=== PATIENT | female | born 1970 | race Caucasian/White ===

== ENCOUNTER 2020-07-24 13:03 | Day surgery (SDC) | payer OTHER ==
[2020-07-23 16:29] LABS: BASOPHILS % (AUTO) 0.4 % (0-1); EOSINOPHILS % (AUTO) 0.5 % (0-6); LYMPHOCYTES # (AUTO) 1.7 X10'3 (1.1-4.8); MEAN CORPUSCULAR HGB CONC 33.5 g/dL (33.0-36.5); MEAN CORPUSCULAR VOLUME 92.4 FL (78-98); MEAN PLATELET VOLUME 10.3 FL (7.4-10.4); MONOCYTES # (AUTO) 0.5 X10'3 (0-0.9); MONOCYTES % (AUTO) 5.6 % (2-12); NEUTROPHILS # (AUTO) 6.4 X10'3 (1.8-7.7); NEUTROPHILS % (AUTO) 73.5 % (42-75); PRE OP HEMATOCRIT 40.6 % (35.0-45.0); PRE OP HEMOGLOBIN 13.6 g/dL (12.0-16.0); PRE OP PLATELET COUNT 224 X10'3 (140-440); RED BLOOD COUNT 4.39 X10'6 (4.20-5.60); RED CELL DISTRIBUTION WIDTH 13.4 % (11.5-14.5)
[2020-07-23 16:44] LABS: ALBUMIN 3.7 G/DL (3.4-5.0); ALKALINE PHOSPHATASE 71 IU/L (46-116); BLOOD UREA NITROGEN 16 MG/DL (7-18); BUN/CREATININE RATIO 18.4 (6.6-38.0); CALCIUM 8.8 MG/DL (8.5-10.1); CHLORIDE 105 MMOL/L (99-107); CREATININE 0.87 MG/DL (0.40-0.90); PRE OP ALT 17 U/L (30-65); PRE OP ANION GAP 8 (8-16); PRE OP AST 12 U/L (10-37); PRE OP BILIRUB, TOTAL 0.4 MG/DL (0.0-1.0); PRE OP GLUCOSE 104 MG/DL (70-104); PRE OP POTASSIUM 4.1 MMOL/L (3.4-5.1); PRE OP SODIUM 140 MMOL/L (135-145); TOTAL CARBON DIOXIDE 26.9 MMOL/L (24-32); TOTAL PROTEIN 7.5 G/DL (6.4-8.2); eGFR 69 ML/MIN
[2020-07-23 16:46] LABS: CLARITY,URINE SLIGHTLY CLOUDY (Clear); COLOR,URINE YELLOW (Yellow); GLUCOSE, URINE NEGATIVE (Neg); KETONES,URINE NEGATIVE (Neg); LEUKOCYTE ESTERASE ,URINE NEGATIVE (Neg); NITRITES, URINE NEGATIVE (Neg); OCCULT BLOOD,URINE SMALL (Neg); PROTEIN,URINE NEGATIVE (Neg); UROBILINOGEN,URINE 0.2 E.U/dL (0.2-1.0)
[2020-07-23 16:50] LABS: UA COLLECTION TYPE CLN CATCH MIDSTREAM
[2020-07-23 16:57] LABS: MUCUS STRANDS MODERATE /LPF (Neg); SQUAMOUS EPITHELIAL CELL,UR MODERATE /LPF (FEW)
[2020-07-23 16:59] LABS: BACTERIA,URINE FEW /HPF (Neg)
[2020-07-23 17:00] LABS: WBC,URINE 0-4 /HPF (0-4)
[2020-07-24] VITALS (16 sets, daily range): BP systolic 112–179; BP diastolic 62–99
[~2020-07-24] VITALS: Ht 167.6 cm; Wt 153.4 kg
[~2020-07-24 13:03] MED LIST: HYDR-3973 PO; ceFAZolin inj. 3,000 MG in normal saline 100ml IV soln 100 ML IV ONE; famotidine 20mg tablet PO ONE
[2020-07-24] MEDS: ringers solution, lacted 1,000 ML IV SCH ×2 (14:16→20:51)
[2020-07-24] MEDS ORDERED: BUPIVAcaine/PF 2.5 mg/ml (0.25%) 30ml vial ONE (15:34)
[2020-07-24] MEDS ORDERED: acetaminophen 1,000mg/100ml IV 100 ML IV ONE (15:46)
[2020-07-24] MEDS ORDERED: morphine 2 MG/ML inj. syringe IV PRN ×2 (15:50→15:55)
[2020-07-24] MEDS ORDERED: proCHLORperazine 10 MG/2 ml inj IV PRN ×2 (15:50→15:55)
[2020-07-24] MEDS ORDERED: ondansetron/PF 4mg/2ml inj IV PRN ×3 (15:50→19:00)
[2020-07-24] MEDS ORDERED: morphine 4 MG/ML inj SYRINge IV PRN ×2 (15:50→15:55)
[2020-07-24] MEDS ORDERED: ringers solution, lacted 1,000 ML IV SCH ×2 (15:50→15:55)
[2020-07-24] MEDS ORDERED: meperidine/PF 25mg/ml syringe IV PRN ×5 (15:50→15:55)
[2020-07-24] MEDS ORDERED: midazolam 2 mg/2 ml injection ONE (15:53)
[2020-07-24] MEDS ORDERED: fentaNYL /PF 50mcg/ml 5ml ampule ONE (15:53)
[2020-07-24] MEDS ORDERED: LIDOcaine 2% (20mg/ml) 5ml vial ONE (15:54)
[2020-07-24] MEDS ORDERED: propofol inj 20 ML IV ONE (15:54)
[2020-07-24] MEDS ORDERED: sevoflurane 250ml liquid IH ONE (16:21)
[2020-07-24] MEDS ORDERED: rocuronium 10mg/ml inj IV ONE ×2 (16:21→16:49)
[2020-07-24] MEDS ORDERED: ondansetron/PF 4mg/2ml inj ONE (18:33)
[2020-07-24] MEDS ORDERED: dexamethasone sod phosphate 4mg/ml inj. ONE (18:33)
[2020-07-24] MEDS ORDERED: glycopyrrolate 0.2mg/ml inj ONE (18:42)
[2020-07-24] MEDS ORDERED: neostigmine methylsulfate 1 MG/ML 10ml vial ONE (18:42)
[2020-07-24] MEDS ORDERED: naloxone 0.4 mg/ml inj IV PRN (19:00)
[2020-07-24] MEDS ORDERED: Potassium Cl inj 20 MEQ in ringers solution, lacted 1,000 ML IV SCH (19:00)
[2020-07-24] MEDS ORDERED: CADD PCA waste documentation MC PRN (19:00)
[2020-07-24] MEDS ORDERED: HYDROcodone/acetaminophen 10/325mg tab PO PRN (19:00)
--- NOTE | 2020-07-24 19:05 | NUR ---
Received from OR via SURGICAL BED , accompanied by Anesthesiologist WILMAN and report given by Anesthesiolgist. PT AWAKE, VS-STABLE, 20G PIV TO RIGHT HAND 100CC LR RUNNING, BANDAIDS TO ABD SITES X5-CDI, F/C-DRAINING CLEAR YELLOW URINE, PT PAINFUL-WILL MEDICATE, SCDS IN PLACE.
[2020-07-24] MEDS: meperidine/PF 25mg/ml syringe IV PRN ×2 (19:11→19:26)
--- NOTE | 2020-07-24 19:38 | NUR ---
Patient in room . I have received report from ERA Lilly and had the opportunity to ask questions and assume patient care.
[2020-07-24] MEDS: HYDROmorphone/NS 1 mg/ml CADD 50 ML IV SCH ×3 (20:03→22:56)
--- NOTE | 2020-07-24 20:15 | NUR ---
Report called to receiving nurse. Transferred via SURGICAL BED WITH 1 BAG OF Belongings. CALLED, PT ALERT AND AWARE OF TRANSFER, VS-WNL, ABD DRSG-CDI, LR RUNNING AT 100ML/HR WITH DILAUDID CADD ATTATCHED, PT EDUCATED ABOUT PAIN MGMT AND USE OF CADD BUTTON, PT GIVEN ORDERED BOLUS DOSE 0.2MG PRIOR TO TRANSFER TO FLOOR, CADD SET UP WITH 0.2MGQ 10MIN DOSING, SCDS IN PLACE, RECEIVING RN AT BEDSIDE Special Issues communicated to receiving nurse.
--- NOTE | 2020-07-24 20:15 | NUR ---
Pt arrived to floor accompanied by two RN's, Demetrice emerson RN states she received bolus and pushed once. VSS, Regular bowel sounds, provided pt with some ice chips, states pain 6/10.
[2020-07-25] VITALS: BP 134/77
[2020-07-25] MEDS: HYDROmorphone/NS 1 mg/ml CADD 50 ML IV SCH ×7 (00:23→13:00)
--- NOTE | 2020-07-25 04:10 | NUR ---
lloyd in [place] x2 sba Addendum: 07/25/20 at 0411 by Jeni Cristobal RN Amended: Links added.
[2020-07-25 04:20] VITALS: BP 149/79
--- NOTE | 2020-07-25 04:33 | NUR ---
Patient not tolerating ice chips at this time. Dropped diet to clears and educated patient to take in clears slowly and NPO if still feeling nauseous.
[2020-07-25] MEDS ORDERED: proCHLORperazine 10 MG/2 ml inj IV PRN (05:15)
[2020-07-25] MEDS: ringers solution, lacted 1,000 ML IV SCH ×2 (05:20→12:25)
--- NOTE | 2020-07-25 05:33 | NUR ---
Increased LR to 125 mL/hr per orders.
--- NOTE | 2020-07-25 06:35 | NUR ---
Problems reprioritized. Patient report given, questions answered & plan of care reviewed with ERA Willson.
[2020-07-25 07:00] VITALS: BP 130/71
--- NOTE | 2020-07-25 10:29 | NUR ---
Dickerson catheter DC 1015. patient voided 100mls ambulated 600ft.
[2020-07-25 11:00] VITALS: BP 130/74
[2020-07-25] MEDS ORDERED: OXYC-150 PO (13:46)
--- NOTE | 2020-07-25 15:03 | NUR ---
patient seen by Dr Hubbard is for DC. DR Hubbard office called into [facility] in [place] prescription for percocet. patients five band aide sites CDI. All Dc instructions given to patient . Patient Dc home via private car with spouse . [id number].
== END 2020-07-25 14:35 | disposition home or self-care (01) ==
LOC: PAS 13:03 → UNDOADMIN 19:04 → SUR 3N 19:04 → UNDODISIN 07-25 14:35 → PAS 07-25 14:35
PROVIDERS: ATTEND Surgery
DX: K43.0 Incisional hernia with obstruction, without gangrene (principal); Z20.828 Contact with and (suspected) exposure to other viral communicable diseases; Z79.899 Other long term (current) drug therapy; Z98.890 Other specified postprocedural states; Z90.710 Acquired absence of both cervix and uterus; Z98.84 Bariatric surgery status; E66.01 Morbid (severe) obesity due to excess calories; Z68.43 Body mass index [BMI] 50.0-59.9, adult; Z90.49 Acquired absence of other specified parts of digestive tract; Z88.8 Allergy status to other drugs, medicaments and biological substances
CPT/HCPCS: 36415; 49655; 80053; 81001; 82948; 85025; 87081; 87635; 93005; C1758; C1781; C9803; J0131; J0690; J0780; J1100; J1170; J2001; J2175; J2250; J2405; J2704; J2710; J3010; J3490; J7120; S2900; A4215; A4618; G0378